=== PATIENT | male | born 1945 | race Caucasian/White ===

== ENCOUNTER 2017-05-18 22:51 | Emergency (ER) | payer OTHER ==
[2017-05-18 23:01] VITALS: O2SAT 92
--- NOTE | 2017-05-19 00:04 | EDPHY ---
H & P Stated Complaint: felt dizzy/disoriented/off kilter for a couple minutes Time Seen by Provider: 05/18/17 23:32 HPI/ROS: HPI The patient presents with an episode of dizziness which occurred at about 10:00 p.m. tonight while he was sitting on the couch. The symptoms came on fairly rapidly and he says he generally felt disoriented and off balance when asked to describe the dizziness. He stood up and noticed that he was tilting to the right side he was able to walk up a flight of stairs while leaning against a wall and his symptoms resolved about 1-2 minutes. He now feels fine with no complaints. He has been feeling well lately. He does not have any nausea, vomiting, headache, tinnitus, diminished hearing. He has been feeling well lately. He does not have any numbness or tingling of his arms or legs. He has no prior history of similar.. REVIEW OF SYSTEMS Constitutional: No fever, no chills. Eyes: No discharge. ENT: No sore throat. Cardiovascular: No chest pain, no palpitations. Respiratory: No cough, no shortness of breath. Gastrointestinal: No abdominal pain, no vomiting. Genitourinary: No hematuria. Musculoskeletal: No back pain. Skin: No rashes. Neurological: No headache. PMHx: Hypertension, hypothyroidism Soc Hx: Lives at home PHYSICAL General Appearance: Alert, no distress Eyes: Pupils equal and round no pallor or injection ENT, Mouth: Mucous membranes moist Respiratory: There are no retractions, lungs are clear to auscultation Cardiovascular: Regular rate and rhythm Gastrointestinal: Abdomen is soft and non-tender, no masses, bowel sounds normal Neurological: Alert and oriented x4, cranial nerves 2-12 intact, 5/5 strength in his upper and lower extremities, normal finger to nose testing, normal heel to suarez testing, no nystagmus, normal gait Skin: Warm and dry, no rashes Musculoskeletal: Neck is supple non tender Extremities: symmetrical, full range of motion Psychiatric: Patient is oriented X 3, there is no agitation Source: Patient Exam Limitations: No limitations - Personal History Current Tetanus/Diphtheria Vaccine: Yes Tetanus Vaccine Date: 2011 - Medical/Surgical History Hx Asthma: No Hx Chronic Respiratory Disease: No Hx Diabetes: No Hx Cardiac Disease: Yes Hx Renal Disease: No Hx Cirrhosis: No Hx Alcoholism: No Hx HIV/AIDS: No Hx Splenectomy or Spleen Trauma: No Other PMH: PMHx: HTN, hypothyroidism, MICHAEL, insomnia, normally elevated kinase levels. PSHx: L wrist, T&A - Social History Smoking Status: Former smoker Constitutional: Initial Vital Signs Temperature (C) 36.6 C 05/18/17 22:57 Heart Rate 102 H 05/18/17 22:57 Respiratory Rate 18 05/18/17 22:57 Blood Pressure 154/96 H 05/18/17 22:57 O2 Sat (%) 92 05/18/17 22:57 O2 Delivery Mode Room Air Allergies/Adverse Reactions: cephalexin monohydrate [From Keflex] Allergy (Intermediate, Verified 12/29/15 23 :09) Anxiety Sulfa (Sulfonamide Antibiotics) Allergy (Unknown, Verified 12/29/15 23:09) zolpidem [From Ambien] Allergy (Verified 05/18/17 22:55) Home Medications: Medication Instructions Recorded Lisinopril/Hydrochlorothiazide 12/29/15 Synthroid 12/29/15 Atenolol 05/18/17 Medical Decision Making - Diagnostics Imaging Results: Imaging Impressions Head CT 05/18/17 23:59 Impression: 1. No acute intracranial findings. If symptoms persist and clinical suspicion warrants, consider MRI. 2. Diffuse cerebral atrophy with periventricular and subcortical low attenuation consistent with chronic microvascular ischemic gliosis. Findings discussed with Martha Caldwell MD 05/19/2017 at 0025. Differential Diagnosis: 72-year-old male with hypertension and hypothyroidism presents from home with brief episode of dizziness and tilting to the right lasting for 1-2 minutes, now completely resolved. On exam, he has normal vital signs and a normal neurologic evaluation. Differential diagnosis includes TIA, peripheral vertigo such as BPPV or labyrinthitis, less likely cerebellar mass given no ongoing symptoms. In the emergency department, patient was monitored with no additional symptoms or recurrence of his symptoms. Labs were checked and were unremarkable. CT scan of head was normal. I offered the patient admission for evaluation for possible TIA. He is feeling well and would really like to go home. I feel this is reasonable as chances of this were a TIA are quite low in my mind. His symptoms were brief, he did not have any true weakness. I discussed starting a baby aspirin and follow-up with Neurology and he is in agreement with this plan. He will be discharged from the emergency department. - Data Points Laboratory Results: Laboratory Results 05/18/17 23:30 05/18/17 23:30 05/18/17 05/18/17 05/18/17 23:55 23:30 23:30 WBC 8.61 10^3/uL 10^3/uL (3.80-9.50) RBC 4.55 10^6/uL 10^6/uL (4.40-6.38) Hgb 15.0 g/dL g/dL (13.7-17.5) Hct 42.7 % % (40.0-51.0) MCV 93.8 fL fL (81.5-99.8) MCH 33.0 pg pg (27.9-34.1) MCHC 35.1 g/dL g/dL (32.4-36.7) RDW 13.9 % % (11.5-15.2) Plt Count 327 10^3/uL 10^3/uL (150-400) MPV 9.7 fL fL (8.7-11.7) Neut % (Auto) 66.9 % % (39.3-74.2) Lymph % (Auto) 16.7 % % (15.0-45.0) Gonzales % (Auto) 10.7 % % (4.5-13.0) Eos % (Auto) 4.2 % % (0.6-7.6) Baso % (Auto) 1.0 % % (0.3-1.7) Nucleat RBC Rel Count 0.0 % % (0.0-0.2) Absolute Neuts (auto) 5.76 10^3/uL 10^3/uL (1.70-6.50) Absolute Lymphs (auto) 1.44 10^3/uL 10^3/uL (1.00-3.00) Absolute Monos (auto) 0.92 10^3/uL H 10^3/uL (0.30-0.80) Absolute Eos (auto) 0.36 10^3/uL 10^3/uL (0.03-0.40) Absolute Basos (auto) 0.09 10^3/uL 10^3/uL (0.02-0.10) Absolute Nucleated RBC 0.00 10^3/uL 10^3/uL (0-0.01) Immature Gran % 0.5 % % (0.0-1.1) Immature Gran # 0.04 10^3/uL 10^3/uL (0.00-0.10) Sodium 140 mEq/L mEq/L (134-144) Potassium 3.8 mEq/L mEq/L (3.5-5.2) Chloride 104 mEq/L mEq/L (97-110) Carbon Dioxide 23 mEq/l mEq/l (22-31) Anion Gap 13 mEq/L mEq/L (8-16) BUN 21 mg/dL mg/dL (7-23) Creatinine 1.0 mg/dL mg/dL (0.7-1.3) Estimated GFR > 60 Glucose 113 mg/dL H mg/dL (70-100) Calcium 9.2 mg/dL mg/dL (8.5-10.4) Total Bilirubin 0.1 mg/dL mg/dL (0.1-1.4) AST 40 IU/L IU/L (17-59) ALT 51 IU/L IU/L (21-72) Alkaline Phosphatase 91 IU/L IU/L (38-126) Total Protein 6.7 g/dL g/dL (6.3-8.2) Albumin 4.1 g/dL g/dL (3.5-5.0) Urine Color COLORLESS Urine Appearance CLEAR Urine pH 5.0 (5.0-7.5) Ur Specific [place] 1.003 (1.002-1.030) Urine Protein NEGATIVE (NEGATIVE) Urine Ketones NEGATIVE (NEGATIVE) Urine Blood NEGATIVE (NEGATIVE) Urine Nitrate NEGATIVE (NEGATIVE) Urine Bilirubin NEGATIVE (NEGATIVE) Urine Urobilinogen NEGATIVE EU EU (0.2-1.0) Ur Leukocyte Esterase NEGATIVE (NEGATIVE) Urine Glucose NEGATIVE (NEGATIVE) Departure - Departure Disposition: Home, Routine, Self-Care Clinical Impression: Dizziness Condition: Good Instructions: Vertigo (ED), Dizziness (ED) Additional Instructions: Please return to the emergency department if your worse in any way. The cause of your dizziness is not entirely clear. It could be related to TIA and because of this I do recommend that you start on aspirin 81 mg daily. I have also given you follow-up with the neurologist Dr. Leach. I recommend that you follow up with your doctor in 1-2 days. Referrals: Richi Leach, DO [Medical Doctor] - As per Instructions
[2017-05-19 00:07] LABS: PLATELET COUNT 327 10^3/uL (150-400)
--- NOTE | 2017-05-19 00:11 | CPEKG ---
Heart Rate: 90 RR Interval: 667 P-R Interval: 208 QRSD Interval: 106 QT Interval: 396 QTC Interval: 485 P Gleason: 68 QRS Gleason: 64 T Wave Gleason: 12 EKG Severity - ABNORMAL ECG - EKG Impression: SINUS RHYTHM EKG Impression: INCOMPLETE RIGHT BUNDLE BRANCH BLOCK EKG Impression: BORDERLINE PROLONGED QT INTERVAL Electronically Signed By: Martha Caldwell 19-May-2017 07:59:36
--- NOTE | 2017-05-19 00:11 | CPEKG ---
Heart Rate: 90 RR Interval: 667 P-R Interval: 208 QRSD Interval: 106 QT Interval: 396 QTC Interval: 485 P [place]: 68 QRS [place]: 64 T Wave [place]: 12 EKG Severity - ABNORMAL ECG - EKG Impression: SINUS RHYTHM EKG Impression: INCOMPLETE RIGHT BUNDLE BRANCH BLOCK EKG Impression: BORDERLINE PROLONGED QT INTERVAL Electronically Signed By: Martha Caldwell 19-May-2017 07:59:36
[2017-05-19 01:23] VITALS: BP 151/90; PULSE 89; RESP 16; TEMP 97.3
== END 2017-05-19 01:33 | disposition home or self-care (01) ==
DX: R42 Dizziness and giddiness (principal); I10 Essential (primary) hypertension; Z87.891 Personal history of nicotine dependence

== ENCOUNTER → 2017-05-30 | Outpatient (CLI) | payer OTHER | LOC: FIMAGING 14:22 | PROVIDERS: ATTEND Family Medicine | DX: R42 Dizziness and giddiness (principal) ==

== ENCOUNTER → 2017-07-03 | Outpatient (CLI) | payer OTHER | LOC: GIMAGING 13:01 | PROVIDERS: ATTEND Nurse Practitioner | DX: S69.91XA Unspecified injury of right wrist, hand and finger(s), initial encounter (principal) | CPT/HCPCS: 73120-PO ==

== ENCOUNTER → 2017-09-17 | Outpatient (CLI) | payer OTHER | LOC: GIMAGING 13:00 | PROVIDERS: ATTEND Nurse Practitioner Acute Care | DX: K44.9 Diaphragmatic hernia without obstruction or gangrene (principal); R91.8 Other nonspecific abnormal finding of lung field | CPT/HCPCS: 71046-PO ==

== ENCOUNTER → 2017-10-03 | Outpatient (CLI) | payer OTHER | LOC: FIMAGING 08:02 | PROVIDERS: ATTEND Surgery | DX: K44.9 Diaphragmatic hernia without obstruction or gangrene (principal); K21.9 Gastro-esophageal reflux disease without esophagitis ==

== ENCOUNTER 2017-11-08 05:50 | Observation (INO) | payer OTHER ==
--- NOTE | 2017-11-07 20:17 | GHP ---
[f rep st] PREOP HISTORY AND PHYSICAL DATE OF ADMISSION: 11/08/2017 DATE OF SURGERY: 11/08/2017. PREOP DIAGNOSIS: Hiatal hernia. HISTORY OF PRESENT ILLNESS: Patient is a 72-year-old man who presented with cough. He had a chest x-ray performed on 09/17/2017, which showed enlargement of a hiatal hernia. He denies any symptoms of heartburn, reflux, chest pain, difficulty swallowing, nausea, vomiting, or early satiety. He denies fevers or chills. He had an upper GI series which showed moderate-sized paraesophageal hernia with the entire fundus above the diaphragm and mild gastroesophageal reflux. In addition, the radiologist noted narrowing of the esophagogastric junction through the diaphragmatic hiatus. He had an endoscopy performed by Dr. Paulino of [facility] on 11/06/2017. PAST MEDICAL HISTORY: Anxiety, hypertension, hyperlipidemia, hypothyroidism, sleep apnea. PAST SURGICAL HISTORY: Thumb surgery, tonsillectomy and adenoidectomy. ALLERGIES: Ambien, Keflex, and sulfa. FAMILY HISTORY: Significant for coronary artery disease and type 2 diabetes in his father. Father also with hypertension and hyperlipidemia. SOCIAL HISTORY: He denies tobacco, alcohol or recreational drug use. REVIEW OF SYSTEMS: Aside from cough, 10-point review of systems negative aside from HPI. PHYSICAL EXAMINATION: GENERAL: Well-developed, well-nourished man in no acute distress. HEENT: Normocephalic, atraumatic. No hearing deficits. Pupils equal and round. No scleral icterus. Mucous membranes moist. NECK: Trachea midline. RESPIRATORY: Clear to auscultation bilaterally. No increased work of breathing. CARDIOVASCULAR: Regular rate and rhythm. No peripheral edema. SKIN: Warm and dry. No rashes. PSYCH: Mood and affect normal. NEURO: Grossly intact. ABDOMEN: Has been soft, nondistended, nontender. Bowel sounds heard throughout. IMPRESSION AND PLAN: 72-year-old man with a paraesophageal hernia. He will proceed with Davinvi possible laparoscopic, possible open hiatal hernia repair with Herlinda fundoplication. We discussed risks of surgery, including but not limited to, heart attack, stroke, blood clots or . We discussed risks of infection, bleeding, damage to surrounding structures, or recurrence. He understands the risks and would like to proceed. He will receive antibiotics on -call to the operating room. Patient was additionally seen by Dr. Christine Rodriguez who agrees with the above impression and plan. /[id number]/MODL MTDD
[2017-11-08] MEDS ORDERED: ceFAZolin 2 GM/SWFI 2 GM/20 ML SYR IVP ONE (06:04)
[2017-11-08] MEDS ORDERED: LR 1,000 ML IV ONE (06:04)
--- NOTE | 2017-11-08 06:44 | PDHPUP ---
History & Physical Update H&P update statement: This history and physical update is based on an assessment of the patient which was completed after admission or registration (within 24 hours), but prior to the surgery/procedure. H&P update: H&P reviewed & patient examined, changes noted (EGD with external compression at GE junction. )
--- NOTE | 2017-11-08 06:58 | PDANEPAE ---
ANE History of Present Illness Hiatal hernia ANE Past Medical History - Cardiovascular History Hx Hypertension: Yes Hx Arrhythmias: No Hx Chest Pain: No Hx Coronary Artery / Peripheral Vascular Disease: No Hx CHF / Valvular Disease: No Hx Palpitations: No Cardiovascular History Comment: WELL CONTROLLED W/MEDS - Pulmonary History Hx COPD: No Hx Asthma/Reactive Airway Disease: No Hx Recent Upper Respiratory Infection: No Hx Oxygen in Use at Home: No Hx Sleep Apnea: Yes Sleep Apnea Screening Result - Last Documented: Positive Pulmonary History Comment: ALLERGIES W/WHEEZING MILD -SEASONAL. RECENT VIRAL FLU TXD W/ABX FOR POST RESP INF & RESOLVED - Neurologic History Hx Cerebrovascular Accident: No Hx Seizures: No Hx Dementia: No - Endocrine History Hx Diabetes: Yes Endocrine History Comment: HYPOTHYROIDISM - Renal History Hx Renal Disorders: No - Liver History Hx Hepatic Disorders: No - Neurological & Psychiatric Hx Hx Neurological and Psychiatric Disorders: No - Cancer History Hx Cancer: No - Congenital Disorder History Hx Congenital Disorders: No - GI History Hx Gastrointestinal Disorders: Yes Gastrointestinal History Comment: Pre-cancerous polyps removed. HIATAL HERNIA - Other Health History Other Health History: NONE - Chronic Pain History Chronic Pain: No - Surgical History Prior Surgeries: COLONOSCOPY OCTOBER 2014. TONSILLECTOMY @ 23 YRS OLD. THUMB SURGERY 5 YRS AGO ANE Review of Systems Review of Systems: - Exercise capacity METS (RN): 5 METS ANE Patient History - Allergies Allergies/Adverse Reactions: cephalexin monohydrate [From Keflex] Allergy (Intermediate, Verified 10/23/17 13 :24) Other-Enter Comments Sulfa (Sulfonamide Antibiotics) Allergy (Unknown, Verified 10/23/17 13:24) Other-Enter Comments zolpidem [From Ambien] Allergy (Verified 10/23/17 13:24) Other-Enter Comments - Home Medications Home medications: home medication list seen and reviewed Home Medications: Levothyroxine [Synthroid 100 mcg (*)] 100 mcg PO DAILY06 12/29/15 [Last Taken 04:00] Lisinopril/Hctz 20/12.5MG [Zestoretic/Prinzide 20/12.5MG (*)] 1 ea PO DAILY [Last Taken 11/07/17] Atenolol [Tenormin 25 mg (*)] 12.5 mg PO DAILY 05/18/17 [Last Taken 11/08/17 04: 30] Acetaminophen [Tylenol 325mg (*)] 325 mg PO DAILY PRN 10/23/17 [Last Taken 10/25] Albuterol [Ventolin Hfa Inhaler] 1 puffs IH DAILY PRN 10/23/17 [Last Taken 11/07] Cholecalciferol Vit D3 [Vitamin D3 (*)] 1,000 units PO DAILY 10/23/17 [Last Taken 11/01/17] Ferrous Sulfate [Ferrous Sulf 325 MG (*)] 325 mg PO Q2D 10/23/17 [Last Taken ] Multivitamins [Multivitamin (*)] 1 each PO DAILY 10/23/17 [Last Taken 11/01/17] Triamcinolone Acetonide [Nasacort] 1 spray EACHNARE DAILY 10/23/17 [Last Taken 11/07/17] - NPO status NPO Since - Liquids (Date): 11/07/17 NPO Since - Liquids (Time): 22:00 NPO Since - Solids (Date): 11/07/17 NPO Since - Solids (Time): 20:30 - Anes Hx Anes Hx: no prior problems - Smoking Hx Smoking Status: Former smoker - Family Anes Hx Family Anes Hx: neg - N/A Family Hx Anesthesia Complications: NEG ANE Labs/Vital Signs - Vital Signs Blood Pressure: 139/87 Heart Rate: 78 Respiratory Rate: 16 O2 Sat (%): 92 Height: 167.64 cm Weight: 83.915 kg ANE Physical Exam - Airway Neck exam: FROM Mallampati Score: Class 2 Mouth exam: normal dental/mouth exam - Pulmonary Pulmonary: clear to auscultation - Cardiovascular Cardiovascular: regular rate and rhythym, no murmur, rub, or gallop - ASA Status ASA Status: III ANE Anesthesia Plan Anesthesia Plan: general endotracheal anesthesia
[2017-11-08] MEDS ORDERED: MIDAZOLAM 2 MG/2 ML VIAL IVP ONE (07:03)
[2017-11-08] MEDS ORDERED: PROPOFOL 200 MG/20 ML VIAL ONE (07:12)
[2017-11-08] MEDS ORDERED: fentaNYL 100 MCG/2 ML INJ ONE ×3 (07:12→11:31)
[2017-11-08] MEDS ORDERED: ROCURONIUM 50 MG/5 ML VIAL ONE ×2 (07:13→07:57)
[2017-11-08] MEDS ORDERED: LIDOCAINE 2% 5 ML SDV ONE (07:13)
[2017-11-08] MEDS ORDERED: BUPIVACAINE 0.5% 30 ML SDV ONE (07:21)
[2017-11-08] MEDS ORDERED: ONDANSETRON 4 MG/2 ML VIAL ONE (08:08)
[2017-11-08] MEDS ORDERED: SUGAMMADEX SODIUM 200 MG/2 ML VIAL IVP ONE (08:08)
[2017-11-08] MEDS ORDERED: DEXAMETHASONE 4 MG/ML VIAL ONE (08:09)
[2017-11-08] MEDS ORDERED: epHEDrine SULFATE 10 MG/ML SYR ONE (08:19)
[2017-11-08] MEDS ORDERED: PROMETHAZINE HCL 25 MG/ML INJ IVP PRN (09:53)
[2017-11-08] MEDS ORDERED: NALOXONE HCL 0.4 MG/ML INJ IVP PRN (09:53)
[2017-11-08] MEDS ORDERED: fentaNYL 100 MCG/2 ML INJ IVP PRN (09:53)
[2017-11-08] MEDS ORDERED: ONDANSETRON 4 MG/2 ML VIAL IVP PRN ×2 (09:53→10:22)
[2017-11-08] MEDS ORDERED: HYDROmorphONE/DILAUDID 2 MG/ML INJ IVP PRN (09:53)
[2017-11-08] MEDS ORDERED: diphenhydrAMINE 25 MG CAP PO PRN (10:22)
[2017-11-08] MEDS ORDERED: ONDANSETRON DISINTEGRATING 4 MG TAB PO PRN (10:22)
[2017-11-08] MEDS ORDERED: ACETAMINOPHEN 325 MG TAB PO PRN (10:22)
--- NOTE | 2017-11-08 10:22 | POSTOPPROG ---
Post Op Note Date of Operation: 11/08/17 Surgeon: Christine Rodriguez Computer Operations Technician: tank arellano Anesthesiologist: brittanie Anesthesia: GET(General Endotracheal) Pre-op Diagnosis: hiatal hernia Post-op Diagnosis: same Indication: 72yo M with enlarging hiatal hernia Procedure: davinci hiatal hernia repair with fundoplication Findings: very large hiatal hernia and sac Inf/Abcess present in the surg proc area at time of surgery?: No EBL: 50-100
[2017-11-08] MEDS ORDERED: HYDROmorphone HCL/NS 0.5 MG/ML SYR IVP PRN (10:23)
[2017-11-08] MEDS ORDERED: NS 1,000 ML IV SCH (10:30)
--- NOTE | 2017-11-08 10:38 | POSTANESTH ---
Post Anesthetic Evaluation Cardiovascular Status: Similar to Pre-Op Cond Respiratory Status: Similar to Pre-op Cond. Level of Consciousness/Mental Status: Can Participate in Eval Pain Control: Adequate, Prn Tx Ordered Nausea/Vomiting Control: Adequate, Prn Tx Ordered Complications Possibly Related to Anesthesia: None Noted
[2017-11-08] MEDS ORDERED: ALBUTEROL 60 PUFFS/8 GM MDI IH PRN (10:45)
--- NOTE | 2017-11-08 15:00 | PDMN ---
Medical Necessity Medical necessity: OP surgery per [facility] cpt 15591 hiat hernia repair w/ fundoplication
[2017-11-08] MEDS: HYDROCODONE/APAP 5/325 TAB PO PRN ×2 (16:11→22:48)
[2017-11-09] MEDS ORDERED: LEVOTHYROXINE 100 MCG TAB PO SCH (06:00)
[2017-11-09] MEDS ORDERED: NON-FORMULARY NEW DRUG (Triamcinolone Acetonide [Nasacort] 1 SPRAY) EACHNARE SCH (09:00)
[2017-11-09] MEDS ORDERED: FLUTICASONE NASAL 120 SPRAYS/16 GM MDI EACHNARE SCH (09:00)
[2017-11-09] MEDS ORDERED: CHOLECALCIFEROL VIT D3 1,000 UNITS TAB PO SCH (09:00)
[2017-11-09] MEDS ORDERED: ENOXAPARIN 40 MG/0.4 ML SYR SC SCH (09:00)
[2017-11-09] MEDS ORDERED: ATENOLOL 25 MG TAB PO SCH (09:00)
[2017-11-09] MEDS ORDERED: LISINOPRIL/HCTZ 20/12.5MG 1 EA TAB PO SCH (09:00)
[2017-11-09 11:43] VITALS: BP 119/88
--- NOTE | 2017-11-09 14:52 | ASMTCMCOM ---
CM Note CM Note Notes: Spoke w/RN, pt will dc home independent when medically stable. CM available for any changes. DC Plan: Independent Date Signed: 11/09/2017 02:52 PM Electronically Signed By:Vidya Bynum RN
[2017-11-10] MEDS ORDERED: FERROUS SULFATE 325 MG TAB PO SCH (09:00)
--- NOTE | 2017-11-11 15:42 | GOP ---
[f rep st] OPERATIVE REPORT DATE OF OPERATION: 11/08/2017 SURGEON: Christine Rodriguez MD [employer] SUPERVISOR: Michael Wilson MD/. PREOPERATIVE DIAGNOSIS: Paraesophageal hernia. POSTOPERATIVE DIAGNOSIS: Paraesophageal hernia. PROCEDURE PERFORMED: DaVinci hiatal hernia repair with fundoplication. FINDINGS: Very large hernia sac. SPECIMENS: None. ESTIMATED BLOOD LOSS: 50. INDICATIONS: The patient is a 72-year-old who was noted to have a hiatal hernia. On his upper GI, the fundus of his stomach was in his chest. On his EGD, there was external compression at the GE junction. DESCRIPTION OF PROCEDURE: The patient was brought into the operating room, placed supine on the table and general anesthesia was administered. His abdomen was prepped and draped in the usual sterile fashion. I infiltrated all sites with 0.5% Marcaine prior to making incisions. I made the first incision above the umbilicus. I inserted the Veress needle, passed the hanging drop test. I then inserted the trocar for the camera port at this site. There were no injuries noted. Under direct vision, I placed an additional trocar in the midclavicular line on the left upper abdomen as well as the right upper abdomen , and I placed a trocar laterally on the right abdomen as well as the left abdomen. The robot was brought in. The patient was placed into reverse Trendelenburg position. The robot was docked. I moved to the console. A liver retractor was introduced to elevate the left lobe of the liver to expose the hiatus. A Rahat clamp was introduced through the left operational assistant port to grasp the stomach and gently pull it toward the left lower quadrant. Most of the stomach reduced freely. However, there was a large hernia sac above the diaphragm. The gastrohepatic ligament was opened with the Harmonic. Beginning at the pars flaccida, the peritoneum was incised anteriorly over the hiatus to the left funmilayo. The right funmilayo was identified and cleared of investing tissue and a medial plane between the right funmilayo and esophagus was developed. The dissection was carried over the arch of the crura. The left funmilayo was similarly dissected. The vagus nerves were protected. Dissection progressed underneath the esophagus until the esophagus was fully mobilized. It took quite a bit of dissection to reduce the large hernia sac completely. Once this was fully reduced, I then was able to close the hiatus. I used 6 sutures of 0 silk and I left approximately 1 cm space posteriorly, allowing the esophagus to rest in a neutral position. The fundus of the stomach was completely mobilized. I then gently passed the fundus over to the right side behind the esophagus. I sutured this to the diaphragm on the right side. I then was able to do a 260-degree floppy wrap, and I took a partial-thickness bite of the esophagus to anchor the wrap. Gastropexy sutures were placed using 2-0 silk suture. There was a small amount of bleeding from the left lobe of the liver. Hemostasis was controlled with electrocautery. I examined the stomach, it was lying in an anatomically correct position. I removed the instruments under direct vision. I then removed the ports. I undocked the robot. I was able to close each incision with 4-0 Monocryl. He was awakened in the operating room, extubated and transferred to PACU in stable condition /[id number]/MODL MTDD
== END 2017-11-09 15:08 | disposition home or self-care (01) ==
LOC: F3N 05:50 → F3E 12:09
PROVIDERS: ADMIT Surgery; ATTEND Surgery
PROC: 0DV44ZZ Restriction of Esophagogastric Junction, Percutaneous Endoscopic Approach (ICD-10-PCS; principal; 2017-11-08 07:15)
PROC: 8E0WXCZ Robotic Assisted Procedure of Trunk Region (ICD-10-PCS; principal; 2017-11-08 07:15)
DX: K44.9 Diaphragmatic hernia without obstruction or gangrene (principal); K21.9 Gastro-esophageal reflux disease without esophagitis; F41.9 Anxiety disorder, unspecified; I10 Essential (primary) hypertension; E78.5 Hyperlipidemia, unspecified; E03.9 Hypothyroidism, unspecified; G47.30 Sleep apnea, unspecified; Z87.891 Personal history of nicotine dependence; Z82.49 Family history of ischemic heart disease and other diseases of the circulatory system
CPT/HCPCS: 43281; J0690; J1100; J1170; J2250; J2405; J2704; J3010

== ENCOUNTER 2017-11-11 19:21 | Emergency (ER) | payer OTHER ==
--- NOTE | 2017-11-11 19:38 | EDPHY ---
H & P Stated Complaint: fever s/p hernia repair Time Seen by Provider: 11/11/17 19:36 - Personal History Current Tetanus Diphtheria and Acellular Pertussis (TDAP): Unsure Tetanus Vaccine Date: 2011 - Medical/Surgical History Hx Asthma: No Hx Chronic Respiratory Disease: No Hx Diabetes: Yes Hx Cardiac Disease: Yes Hx Renal Disease: No Hx Cirrhosis: No Hx Alcoholism: No Hx HIV/AIDS: No Hx Splenectomy or Spleen Trauma: No Other PMH: PMHx: HTN, hypothyroidism, MICHAEL, insomnia, normally elevated kinase levels. PSHx: L wrist, T&A - Social History Smoking Status: Former smoker Constitutional: Initial Vital Signs Temperature (C) 37 C 11/11/17 19:28 Heart Rate 87 11/11/17 19:28 Respiratory Rate 16 11/11/17 19:28 Blood Pressure 172/108 H 11/11/17 19:28 O2 Sat (%) 91 L 11/11/17 19:28 O2 Delivery Mode Room Air Allergies/Adverse Reactions: cephalexin monohydrate [From Keflex] Allergy (Intermediate, Verified 10/23/17 13 :24) Other-Enter Comments Sulfa (Sulfonamide Antibiotics) Allergy (Unknown, Verified 10/23/17 13:24) Other-Enter Comments zolpidem [From Ambien] Allergy (Verified 10/23/17 13:24) Other-Enter Comments Home Medications: Medication Instructions Recorded Levothyroxine [Synthroid 100 mcg 100 mcg PO DAILY06 12/29/15 (*)] Lisinopril/Hctz 20/12.5MG 1 ea PO DAILY 12/29/15 [Zestoretic/Prinzide 20/12.5MG (*)] Atenolol [Tenormin 25 mg (*)] 12.5 mg PO DAILY 05/18/17 Acetaminophen [Tylenol 325mg (*)] 325 mg PO DAILY PRN 10/23/17 Albuterol [Ventolin Hfa Inhaler] 1 puffs IH DAILY PRN 10/23/17 Cholecalciferol Vit D3 [Vitamin D3 1,000 units PO DAILY 10/23/17 (*)] Ferrous Sulfate [Ferrous Sulf 325 325 mg PO Q2D 10/23/17 MG (*)] Multivitamins [Multivitamin (*)] 1 each PO DAILY 10/23/17 Triamcinolone Acetonide [Nasacort] 1 spray EACHNARE DAILY 10/23/17 Medical Decision Making - Diagnostics Imaging Results: Imaging Impressions Chest X-Ray 11/11/17 19:50 Impression: 1. New left lower lobe pneumonia versus atelectasis. 2. Moderate to large hiatal hernia unchanged. Imaging: Discussed imaging studies w/ will call clerk Radiologist, I viewed and interpreted images myself ED Course/Re-evaluation: CHIEF COMPLAINT: Fever, recent hernia surgery HISTORY OF PRESENT ILLNESS: The patient is a 72 y/o male arriving at the recommendation of a nursing hotline due to a waxing and waning fever following a laparoscopic hiatal hernia repair on 11/08/17, 3 days ago. There were no complications during the surgery and his initial recovery in the hospital went smoothly. He was discharged home Saturday afternoon and within 2 hours he felt a little off and noticed he had a fever. His temperature has varied between 101- 104 with Tylenol use and persisted through most of the weekend. This morning he felt well and was afebrile for a time until his fever returned this afternoon. He has mild discomfort at the surgical sites, but denies pain elsewhere. He has been eating and drinking normally with normal bowel and bladder output. He has noticed some mild difficulty taking a full, complete breath since the surgery. He denies myalgias, vomiting, diarrhea, cough, sore throat, urinary symptoms, calf pain or swelling, chest pain. He says, "I'm not feeling terribly sick, but two days with this fever is worrying me." REVIEW OF SYSTEMS: A 10 point review of systems was performed and is negative with the exception of the elements mentioned in the history of present illness. PHYSICAL EXAM: HR, BP, O2 Sat, RR. Temp noted General Appearance: Alert, well hydrated, appropriate, and non-toxic appearing. Head: Atraumatic without scalp tenderness or obvious injury Eyes: Pupils equal, round, reactive to light and accommodation, EOMI, no trauma , no injection. Nose: Atraumatic, no rhinorrhea, clear. Throat: Mucus membranes moist. Neck: Supple Respiratory: No retractions, no distress, no wheezes, and no accessory muscle use. Lungs have mild rhonchi at the bases to auscultation bilaterally. Cardiovascular: Regular rate and rhythm, no murmurs, rubs, or gallops. Good capillary refill all extremities. Gastrointestinal: Abdomen is soft, nontender, non-distended, no masses, no rebound, no guarding, no peritoneal signs. Surgical sites clean, dry, intact, without signs of infection. Musculoskeletal: Normal active ROM of all extremities, atraumatic. No calf tenderness or swelling. Neurological: Alert, appropriate, and interactive. The patient has non-focal cranial nerves, motor, sensory, and cerebellar exam. Skin: No rashes, good turgor, no nodules on palpation. Past medical history: Hypertension Past surgical history: Hiatal hernia repair - Herlinda fundoplication Family history: Noncontributory Social history: Lives in [place]. Surgeon: Dr. Rodriguez DIAGNOSTICS/PROCEDURES/CRITICAL CARE TIME: Chest x-ray: Atelectasis at the bases bilaterally. DIFFERENTIAL DIAGNOSIS: The differential diagnosis for the patient's symptoms included but was not limited to post-surgical atelectasis, pneumonia, urinary tract infection, viral syndrome, meningitis, and sepsis. MEDICAL DECISION MAKING: This is a well-appearing 72 y/o male 3 days out from a laparoscopic hiatal hernia repair who presents with a waxing and waning fever over the last 2 days and mild difficulty taking a full breath. His surgical sites are clean, dry, and intact without evidence of infection. He has mild rhonchi at the bases bilaterally and an SpO2 around 91-92%. He is not ill-appearing whatsoever on exam here and has no infectious signs or symptoms. He is afebrile here. I suspect symptoms are caused by post-surgical atelectasis. Plan for IV, labs, chest x-ray. Chest x-ray shows mild atelectasis at the bases. Reassessed patient and discussed findings. He will be discharged with incentive spirometer and instructions to follow up with Dr. Rodriguez in the next 1-2 days. Strict return precautions discussed. 2036: Consulted with Dr. Son, surgeon on-call for Dr. Rodriguez. Their office will follow up with him this week. - Data Points Laboratory Results: Laboratory Results 11/11/17 20:00 11/11/17 20:00 11/11/17 11/11/17 20:00 20:00 WBC 11.95 10^3/uL H 10^3/uL (3.80-9.50) RBC 4.58 10^6/uL 10^6/uL (4.40-6.38) Hgb 14.6 g/dL g/dL (13.7-17.5) Hct 42.5 % % (40.0-51.0) MCV 92.8 fL fL (81.5-99.8) MCH 31.9 pg pg (27.9-34.1) MCHC 34.4 g/dL g/dL (32.4-36.7) RDW 12.3 % % (11.5-15.2) Plt Count 227 10^3/uL 10^3/uL (150-400) MPV 9.5 fL fL (8.7-11.7) Neut % (Auto) 74.1 % % (39.3-74.2) Lymph % (Auto) 10.0 % L % (15.0-45.0) [place] % (Auto) 11.3 % % (4.5-13.0) Eos % (Auto) 3.4 % % (0.6-7.6) Baso % (Auto) 0.6 % % (0.3-1.7) Nucleat RBC Rel Count 0.0 % % (0.0-0.2) Absolute Neuts (auto) 8.86 10^3/uL H 10^3/uL (1.70-6.50) Absolute Lymphs (auto) 1.19 10^3/uL 10^3/uL (1.00-3.00) Absolute Monos (auto) 1.35 10^3/uL H 10^3/uL (0.30-0.80) Absolute Eos (auto) 0.41 10^3/uL H 10^3/uL (0.03-0.40) Absolute Basos (auto) 0.07 10^3/uL 10^3/uL (0.02-0.10) Absolute Nucleated RBC 0.00 10^3/uL 10^3/uL (0-0.01) Immature Gran % 0.6 % % (0.0-1.1) Immature Gran # 0.07 10^3/uL 10^3/uL (0.00-0.10) Sodium 136 mEq/L mEq/L (135-145) Potassium 3.3 mEq/L L mEq/L (3.5-5.2) Chloride 97 mEq/L mEq/L (97-110) Carbon Dioxide 27 mEq/l mEq/l (22-31) Anion Gap 12 mEq/L mEq/L (8-16) BUN 14 mg/dL mg/dL (7-23) Creatinine 0.9 mg/dL mg/dL (0.7-1.3) Estimated GFR > 60 Glucose 125 mg/dL H mg/dL (70-100) Calcium 8.8 mg/dL mg/dL (8.5-10.4) Departure - Departure Disposition: Home, Routine, Self-Care Clinical Impression: Atelectasis of both lungs, post-operative Condition: Good Instructions: How to Use an Incentive Spirometer (ED), Atelectasis (ED) Additional Instructions: 1. Use incentive spirometer as directed. 2. Follow up with Dr. Rodriguez in the next 1-2 days. I recommend calling her office tomorrow morning. 3. Return to the ED for any worsening of condition. Referrals: Marcell Cameron DO [Primary Care Provider] - As per Instructions Christine Rodriguez MD [Medical Doctor] - As per Instructions Report Scribed for: Rj Alcaraz Report Scribed by: Ping Cheek Date of Report: 11/11/17 Time of Report: 19:54
[2017-11-11 20:13] LABS: PLATELET COUNT 227 10^3/uL (150-400)
[2017-11-11 20:32] VITALS: BP 144/72
== END 2017-11-11 20:31 | disposition home or self-care (01) ==
DX: J98.11 Atelectasis (principal); I10 Essential (primary) hypertension; E11.9 Type 2 diabetes mellitus without complications; Z87.891 Personal history of nicotine dependence

== ENCOUNTER → 2018-08-11 | Outpatient (CLI) | payer OTHER | LOC: GIMAGING 20:36 | PROVIDERS: ATTEND Nurse Practitioner Family | DX: R50.9 Fever, unspecified (principal); R06.2 Wheezing | CPT/HCPCS: 71046-PO ==